=== PATIENT | female | born 1950 | race Caucasian/White ===

== ENCOUNTER → 2019-03-16 | Outpatient (CLI) | payer MEDICARE, OTHER ==
--- NOTE | 2019-03-16 13:33 | RADIOLOGY REPORT (SQ) ---
EXAM DESCRIPTION: BARIUM SWALLOW ESOPHAGUS COMPLETED DATE/TIME: 03/16/2019 9:20 am REASON FOR STUDY: ESOPHAGEAL OBSTRUCTION (K22.2) K22.2 ESOPHAGEAL OBSTRUCTION COMPARISON: None. TECHNIQUE: Under fluoroscopic guidance, patient ingested effervescent granules followed by thick and thin barium. Fluoroscopic spot images and routine radiographic images acquired and stored on PACS. 12 MM BARIUM TABLET GIVEN: Yes. 12 MM barium tablet paused in the distal esophagus just above a moderate-sized hiatal hernia for abou t 5 minutes before dropping through into the stomach. This reproduced the patient's symptoms. LIMITATIONS: None. FLUOROSCOPY TIME: FLUORO TIME: 2 minutes 11 seconds 12 series of digital fluoroscopic images saved to PACS. FINDINGS: NEUROMUSCULAR COORDINATION OF SWALLOW: Normal. No aspiration. ESOPHAGEAL MOTILITY: Normal peristalsis. No esophageal spasm. ESOPHAGEAL MUCOSA: Normal mucosa without masses or ulceration. GASTRO-ESOPHAGEAL JUNCTION: There is a moderate size hiatal hernia. Just above the hiatal hernia, a 4 cm long smooth peptic stricture of the distal esophagus is present. This impedes passage of the 12 mm barium tablet, and reproduced the patient's symptoms. After about 5 minutes, tablet dissolved an d the tablet passed into the stomach. There is gastroesophageal reflux to the mid 3rd of the esophagus. No distal esophageal mucosal irreg ularity. NON-GI TRACT STRUCTURES: No significant finding. OTHER: No other significant finding. IMPRESSION: Moderate size hiatal hernia with gastroesophageal reflux Smooth peptic stricture just above the GE junction, impeded passage of the 12 mm barium tablet. COMMENT: Quality ID [id number]: Final reports for procedures using fluoroscopy that document radiation exp osure indices, or exposure time and number of fluorographic images (if radiation exposure indices are not available) TECHNICAL DOCUMENTATION: JOB ID: [id number] [employer]- All Rights Reserved Reading location - IP/workstation name: [email or web address]
== END ==
LOC: RAD 08:32
PROVIDERS: ATTEND Internal Medicine Gastroenterology
DX: K22.2 Esophageal obstruction (principal); K21.9 Gastro-esophageal reflux disease without esophagitis; K44.9 Diaphragmatic hernia without obstruction or gangrene
CPT/HCPCS: 74220